=== PATIENT | female | born 1995 | race Caucasian/White ===

== ENCOUNTER 2017-10-07 08:55 | Emergency (ER) | payer SELFPAY ==
[2017-10-07 09:01] VITALS: BP 144/91; TEMP 98.5; O2SAT 99
--- NOTE | 2017-10-07 09:21 | C.PDOC ---
History Of Present Illness 21 year old female presents to the ED with sinus congestion, sore throat, and right ear discharge which began yesterday. Patient also reports subjective fever. Denies trauma. Patient reports yellow ear dicharge and mild right ear pain. Denies hearing loss. 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 SINUS RAIN, SORE THROAT, R EAR DC SINCE YEST. SUBJ FEVER. NO TRAUMA. EAR DC = YELLOW. MILD R EAR PAIN. NO HEARING LOSS. NO MEDS TAKEN [employer] LOCOM[employer] CRANE EXAM NONTOXIC HEENT +SINUS RAIN W CLEAR RHINORRHEA; B/L TM CLEAR, INTACT; THROAT CLEAR REMAINDER NEG Time Seen by Provider: 10/07/17 09:19 Chief Complaint (Nursing): Cough, Cold, Congestion History Per: Patient History/Exam Limitations: no limitations Onset/Duration Of Symptoms: Hrs Current Symptoms Are (Timing): Still Present Location Of Pain: Throat, Sinus/es Ear Symptoms: Left: None ( ), Right: Ear Pain (mild ), Ear Drainage (yellow) Additional History Per: Patient Past Medical History Reviewed: Historical Data, Nursing Documentation, Vital Signs Vital Signs: Last Vital Signs Temp 98.5 F 10/07/17 08:59 Pulse 99 H 10/07/17 09:20 Resp 18 10/07/17 09:20 BP 144/91 H 10/07/17 08:59 Pulse Ox 99 10/07/17 11:05 - Medical History PMH: Kidney Stones Surgical History: No Surg Hx Family History: States: Unknown Family Hx - Social History Hx Alcohol Use: No Hx Substance Use: No - Immunization History Hx Tetanus Toxoid Vaccination: No Hx Influenza Vaccination: No Hx Pneumococcal Vaccination: No Review Of Systems Constitutional: Positive for: Fever ENT: Positive for: Ear Pain (mild ), Ear Discharge (right), Throat Pain. Negative for: Other (hearing loss ) Physical Exam - Physical Exam Appears: Non-toxic, No Acute Distress Skin: Normal Color, Warm, Dry Head: Atraumatic, Normacephalic Eye(s): bilateral: Normal Inspection Ear(s): Bilateral: Normal, Other (bilateral TM clear and intact ) Nose: Other (sinus congestion with clear rhinorrhea ) Throat: Normal, No Erythema, No Exudate Neck: Supple Chest: Symmetrical, No Deformity, No Tenderness Cardiovascular: Rhythm Regular Respiratory: Normal Breath Sounds, No Rales, No Rhonchi, No Wheezing Extremity: Normal ROM, Capillary Refill (less than 2 seconds ) Neurological/Psych: Oriented x3, Normal Speech, Normal Cognition ED Course And Treatment O2 Sat by Pulse Oximetry: 99 (on RA) Pulse Ox Interpretation: Normal Disposition Counseled Patient/Family Regarding: Diagnosis, Need For Followup, Rx Given - Disposition Referrals: [facility] [Outside] [facility] [Outside] Disposition: HOME/ ROUTINE Disposition Time: 09:21 Condition: GOOD Instructions: Upper Respiratory Infection (ED) Forms: Audit Verify (Paraguayan) - Clinical Impression Clinical Impression: Upper respiratory infection - Scribe Statement The provider has reviewed the documentation as recorded by the Scribe (Lucia Kim) Provider Attestation: All medical record entries made by the Scribe were at my direction and personally dictated by me. I have reviewed the chart and agree that the record accurately reflects my personal performance of the history, physical exam, medical decision making, and the department course for this patient. I have also personally directed, reviewed, and agree with the discharge instructions and disposition.
[2017-10-07 09:26] VITALS: PULSE 99; RESP 18
== END 2017-10-07 09:26 | disposition home or self-care (01) ==
LOC: C.ER 08:55
DX: J06.9 Acute upper respiratory infection, unspecified (principal)